=== PATIENT | female | born 1995 | race Hispanic/Latino ===

== ENCOUNTER 2022-07-12 08:12 | Outpatient (CLI) | payer OTHER | END 2022-07-12 08:13 | disposition home or self-care (01) | LOC: CSHULT 08:12 | PROVIDERS: ATTEND Nurse Practitioner Family | DX: R10.30 Lower abdominal pain, unspecified (principal); R93.89 Abnormal findings on diagnostic imaging of other specified body structures | CPT/HCPCS: 76856 ==